=== PATIENT | female | born 1960 | race Caucasian/White ===

== ENCOUNTER 2023-12-16 07:46 | Emergency (ER) | payer OTHER, SELFPAY ==
[2023-12-16 07:48] VITALS: BP 166/81
[2023-12-16 08:00] VITALS: BP 165/73
--- NOTE | 2023-12-16 08:36 | ED.GENMED ---
History of Present Illness
General
Chief Complaint: Musculo-Skeletal Complaint
Source: patient
Exam Limitations: none
Time Seen by Provider: 12/16/23 07:46
Nursing documentation reviewed up to this point in time: agreed with
History of Present Illness
History of Present Illness:
63-year-old female past medical history of hyperlipidemia presenting to the emergency department today with concerns of right-sided buttock discomfort with radiation down her right leg some ongoing over the past month. She has not seen any doctor
for this. She noticed spasm to her low back starting this morning difficulty ambulating thus called EMS and was brought to the ER. Denies any chest pain shortness of breath numbness weakness changes in urination or bowel movements.
Past History
Past History
ED Past Medical History: Hypercholesterolemia, Psychiatric (Anxiety) and Other (Ulcers, Migraines, Diverticulitis, Low Estrogen); Negative Asthma, HTN or NIDDM
ED Past Surgical History: Gynecological (Hysterectomy with left Oophorectomy)
Social History
Tobacco: Former smoker
Alcohol: None
Drug: None
Personal:
Living: with family
Employment: Employed
Family History
Family History: Other (nc)
Review of Systems
Review of Systems
Allergies reviewed?: Yes
All Other Systems: ROS reviewed and negative except as documented in HPI and ROS
Phy Exam
Physical Exam
Physical Exam:
GENERAL: Alert , in no apparent distress
EYE: pupils equal and reactive
NECK: Supple, no significant adenopathy.
ENT: o/p clr, mmm.
CARDIAC: Regular rate and rhythm .
LUNGS: Clear breath sounds bilaterally, no acute respiratory distress, no wheezes/rales/rhonchi
ABDOMEN: Soft, without focal tenderness, no r/g, no cvat
NEUROLOGICAL: Alert and oriented, no focal neuro deficits
SKIN: Warm and dry, skin intact.
MUSCULOSKELETAL: Increased discomfort to the low back with straight leg raise to the right leg, no edema, well perfused.
PSYCH: Normal and appropriate interaction.
Course
Orders/Labs/Results
Orders:
Orders
12/16/23 08:15
Dexamethasone [Decadron] 10 mg PO NOW STA
Diazepam [Valium] 5 mg PO NOW STA
Ketorolac [Toradol] 30 mg IM NOW STA
12/16/23 08:55
Lumbar Spine, 2 or 3 View [CR Lumbar Spine 2 Or 3 Views] Urgent
Comment:
Reason For Exam: low back pain
12/16/23 09:52
Hip, Right 2-3 Views [CR Hip - RT w/wo Pel 2-3 Vw*] Urgent
Comment:
Reason For Exam: right hip pain
Include a pelvis x-ray?: Yes
Pt Eval And Treat Urgent
Activity Level: Ambulate
12/16/23 11:40
CT Pelvis W/o Iv Contrast Urgent
Comment:
Reason For Exam: hip pain, cannot weight bear
12/16/23 11:43
Oxycodone/Acetaminophen [Percocet 5/325] 2 tablet PO NOW STA
Vital Signs
Initial and Last Documented VS:
Initial Vital Signs
Temp Pulse Resp BP Pulse Ox
98 F 83 16 166/81 100
12/16/23 07:48 12/16/23 07:48 12/16/23 07:48 12/16/23 07:48 12/16/23 07:48
Last Documented Vital Signs
Temp Pulse Resp BP Pulse Ox
98 F 83 16 126/75 97
12/16/23 07:48 12/16/23 07:48 12/16/23 07:48 12/16/23 10:45 12/16/23 08:30
MDM/Problems Addressed
MDM/Problems Addressed:
63-year-old female presenting to the emergency department today with concerns of pain from her right low back rating down her right leg over the past month worsening this morning making difficulty to ambulate. Patient denies any numbness weakness
change in bowel movements or bladder function. Patient does seem to have worsening discomfort to the low back with straight leg raise to the right side. Patient does seem to have some difficulty and discomfort when moving the low back. X-rays
without emergent findings did show arthritis and anterolisthesis patient was given multiple medications had some improvement but still unable to ambulate was seen by PT still unable to ambulate. Considering this and patient's poor memory there was
concern for potential occult fracture CT scan was performed that did not show emergent injuries but did show significant anterolisthesis L4 on L5 as well as significant disc herniation L4-L5 and severe central canal stenosis as well as right-sided
neural foraminal narrowing at L4-L5. Patient was given more pain medications seem to have more improvement of symptoms.
*Critical Care Note
Total Time (30-74mins, 75-104mins- exclusive of procedures): Not Applicable
ED Attending Note
-
Portions of this chart may have been created with voice recognition software.� Occasional wrong word or��sound alike� substitutions may have occurred due to the inherent limitations of voice recognition software.
Discharge Plan
Departure
Patient Disposition: Home (Routine Discharge)
Date of Disposition: 12/16/23
Time of Disposition: 15:09
Patient with high blood pressure during this ER visit?: No
Condition: Good
Covid-19: Not Applicable
Discharge Problem:
Low back pain, Lumbar radiculopathy, Anterolisthesis
Instructions: Low Back Pain ED
Prescriptions:
New
prednisone 50 mg tablet
50 mg PO DAILY 4 Days Qty: 4 0RF
cyclobenzaprine 10 mg tablet
10 mg PO HS PRN (Reason: muscle spasm) Qty: 7 0RF
meloxicam 15 mg tablet
15 mg PO DAILY 14 Days Qty: 14 0RF
No Action
sertraline 50 MG tablet
100 mg PO DAILY
valacyclovir [Valtrex] 1 gram Tablet
1,000 mg PO DAILY
levofloxacin 500 mg tablet
500 mg PO DAILY 10 Days Qty: 10 0RF
metronidazole 250 mg tablet
250 mg PO TID Qty: 14 0RF
oxycodone-acetaminophen [Percocet] 5-325 mg tablet
1 tab PO Q6HPRN PRN (Reason: pain) Qty: 10 0RF
polyethylene glycol 3350 [Miralax] 17 gram powder in packet
17 g PO DAILY PRN (Reason: Constipation) Qty: 14 0RF
Referrals:
Abi Monge MD [Family Provider] -
Tanvir Rivera MD [Active] - Follow up in 5-7 days
Arvin Choi DO [Active] - Follow up in 10 days
Activity Restrictions/Additional Instructions:
You came to the emergency department today with concerns of low back discomfort of the right side. You had a CT scan that confirmed herniated disks and chronic back issues. You will need to follow-up closely with the back doctor. Return to the
emergency department for any worsening, new or concerning symptoms.
Interventions
Interventions:
*Risk Screen - Suicide Last Done: 12/16/23 07:48
*General Assessment Last Done: 12/16/23 07:48
*Neglect/Abuse Screening Last Done: 12/16/23 10:19
*ED COVID-19 Vaccine History Last Done: 12/16/23 10:18
ED-Musculoskeletal Assessment Last Done: 12/16/23 10:18
Discharge Date and Time
Print Language: YORUBA
[2023-12-16] MEDS: DECADRON 10 MG PO (08:37)
[2023-12-16] MEDS: TORADOL 30 MG IM (08:37)
[2023-12-16] MEDS: VALIUM 5 MG PO (08:38)
[2023-12-16 10:45] VITALS: BP 126/75
[2023-12-16 11:54] VITALS: BP 157/65; PULSE 80; O2SAT 99
[2023-12-16] MEDS: PERCOCET 5/325 2 TABLET PO (12:11)
[2023-12-16 15:25] VITALS: BP 120/70
== END 2023-12-16 15:29 | disposition home or self-care (01) ==
LOC: EMR 07:46
PROVIDERS: EMERGENCY PHYSICIAN Emergency Medicine; FAMILY PHYSICIAN Family Medicine
DX: M43.16 Spondylolisthesis, lumbar region (principal); M54.16 Radiculopathy, lumbar region; E78.00 Pure hypercholesterolemia, unspecified; Z87.891 Personal history of nicotine dependence; Z90.710 Acquired absence of both cervix and uterus; Z90.721 Acquired absence of ovaries, unilateral
CPT/HCPCS: 96372; 99284; 72100; 72192; 73502

== ENCOUNTER 2024-01-09 03:48 | Emergency (ER) | payer OTHER, SELFPAY ==
[2024-01-09 03:49] VITALS: BMI 23.3
[2024-01-09 03:55] VITALS: BP 185/92
[2024-01-09 04:00] VITALS: BP 190/99
--- NOTE | 2024-01-09 04:56 | ED.GENMED ---
History of Present Illness
General
Chief Complaint: Back Pain
Source: patient, spouse, ambulance crew and previous radiology exam (Previous lumbar spine x-ray, hip x-ray, CT pelvis December 16, 2023 showing significant anterolisthesis L4 on L5 as well as significant disc herniation L4-L5 and severe central
canal stenosis and right sided foraminal narrowing L4-L5)
Exam Limitations: none
Time Seen by Provider: 01/09/24 04:38
Nursing documentation reviewed up to this point in time: agreed with
History of Present Illness
History of Present Illness:
This is a 63-year-old woman who presents to the ED via EMS with complaints of low back pain radiating down her right posterior lateral leg that has been ongoing over the past 2 months.
Evaluated in this ED a little over 3 weeks ago with similar complaints and underwent multiple imaging showing significant L4-L5 disc disease with severe central canal stenosis and right-sided foraminal narrowing at L4-L5.
After several medications including oxycodone, evaluated by physical therapy, able to ambulate and was discharged to home with a 2-week course of meloxicam, short course of prednisone as well as a few Flexeril.
She has since followed up with her primary care physician and was prescribed Vicodin January 03 and she has an initial appointment with pain management scheduled today at 2 PM.
She presents to the ED tonight via EMS with complaints of ongoing pain with intermittent shooting pain right lateral thigh.
She has not had a fever nor chills, no fall. She has been moving her bowels normally. No difficulty urinating but does admit to increased pain, difficulty with ambulation but again has had no falls.
Although prescribed Vicodin this has not been helpful for pain.
She does have history of dementia, poor short-term memory, her is at bedside and provides much of her history.
Past History
Past History
ED Past Medical History: Hypercholesterolemia, Psychiatric (Anxiety) and Other (Ulcers, Migraines, Diverticulitis, Low Estrogen; lumbar disc disease with right-sided sciatica); Negative Asthma, HTN or NIDDM
ED Past Surgical History: Gynecological (Hysterectomy with left Oophorectomy)
Social History
Tobacco: Former smoker
Alcohol: None
Drug: None
Personal:
Living: with family
Employment: Retired
Family History
Family History: Other (nc)
Phy Exam
Physical Exam
Physical Exam:
GENERAL: 63-year-old woman, thin build, appears her stated age, sitting upright on stretcher, awake and alert, mildly anxious otherwise appears in no acute distress. is accompanying.
EYE: anicteric
NECK: Supple, nontender, no meningismus, no significant adenopathy.
ENT: oral mucosa is moist. No rhinorrhea
CARDIAC: Regular rate and rhythm. no murmur.
LUNGS: Clear breath sounds bilaterally, no acute respiratory distress, no wheezes/rales/rhonchi
ABDOMEN: Soft, nondistended, without focal tenderness, no r/g, no cvat. normoactive BS.
BACK: No midline bony tenderness. No palpable bony pelvic tenderness. Straight leg raising is positive on the right.
NEUROLOGICAL: Alert and oriented x3, no focal neuro deficits. Motor strength is 5/5 bilaterally. Gross sensation is intact.
SKIN: Warm and dry, normal color, skin intact. No rash.
MUSCULOSKELETAL: No C/C/E. peripheral pulses are full and equal b/l. No palpable tenderness.
PSYCH: Mildly anxious. Cooperative.
Course
Orders/Labs/Results
Orders:
Orders
01/09/24 04:55
Ketorolac [Toradol] 60 mg IM NOW STA
Prednisone [Deltasone] 50 mg PO NOW STA
Vital Signs
Initial and Last Documented VS:
Initial Vital Signs
Temp
98.2 F
01/09/24 03:53
Last Documented Vital Signs
Temp BP Pulse Ox
98.2 F 194/89 97
01/09/24 03:53 01/09/24 06:00 01/09/24 06:00
MDM/Problems Addressed
Differential Diagnosis Includes:
Patient presents with ongoing low back pain radiating to right posterior lateral leg with known lumbar DJD, right sided sciatica.
She has had ongoing pain over the past 2 months but has had no falls, no fever.
No red flags in history nor exam, no saddle anesthesia, no difficulty moving her bowels or bladder.
She has an initial appointment with pain management scheduled for today at 2 PM.
At this point no indication for further imaging.
Will attempt pain control with plan for discharge to home to follow-up with pain management this afternoon as already scheduled.
As patient has history of dementia, ambulation is already compromised due to back pain will attempt to avoid narcotics if at all possible.
Chronic conditions affecting care: Psychiatric illness (Dementia, anxiety) and Other (Known lumbar disc disease with right-sided sciatica)
*Pulse Oximetry
Patient hypoxic: no
*Critical Care Note
Total Time (30-74mins, 75-104mins- exclusive of procedures): Not Applicable
Update Note
Update Note:
Patient feeling improved, resting comfortably. Eager to be discharged to home.
Recommend follow-up with pain management for which she has an appointment scheduled at 2 PM today.
ED Attending Note
-
Portions of this chart may have been created with voice recognition software.� Occasional wrong word or��sound alike� substitutions may have occurred due to the inherent limitations of voice recognition software.
Discharge Plan
Departure
Patient Disposition: Home (Routine Discharge)
Date of Disposition: 01/09/24
Time of Disposition: 06:19
Patient with high blood pressure during this ER visit?: No
Condition: Good
Discharge Problem:
Low back pain with right-sided sciatica
Instructions: Sciatica (DC)
Prescriptions:
No Action
sertraline 50 MG tablet
100 mg PO DAILY
valacyclovir [Valtrex] 1 gram Tablet
1,000 mg PO DAILY
levofloxacin 500 mg tablet
500 mg PO DAILY 10 Days Qty: 10 0RF
metronidazole 250 mg tablet
250 mg PO TID Qty: 14 0RF
oxycodone-acetaminophen [Percocet] 5-325 mg tablet
1 tab PO Q6HPRN PRN (Reason: pain) Qty: 10 0RF
polyethylene glycol 3350 [Miralax] 17 gram powder in packet
17 g PO DAILY PRN (Reason: Constipation) Qty: 14 0RF
prednisone 50 mg tablet
50 mg PO DAILY 4 Days Qty: 4 0RF
cyclobenzaprine 10 mg tablet
10 mg PO HS PRN (Reason: muscle spasm) Qty: 7 0RF
meloxicam 15 mg tablet
15 mg PO DAILY 14 Days Qty: 14 0RF
Referrals:
Abi Monge MD [Family Provider] -
Activity Restrictions/Additional Instructions:
Follow-up with your pain management appointment today at 2 PM
Interventions
Interventions:
*Risk Screen - Suicide Last Done: 01/09/24 03:53
*General Assessment Last Done: 01/09/24 03:53
*Neglect/Abuse Screening Last Done: 01/09/24 03:53
*ED COVID-19 Vaccine History Last Done: 01/09/24 03:53
ED-Musculoskeletal Assessment Last Done: 01/09/24 03:53
Discharge Date and Time
Print Language: AZERBAIJANI
[2024-01-09] MEDS: DELTASONE 50 MG PO (04:59)
[2024-01-09] MEDS: TORADOL 60 MG IM (04:59)
[2024-01-09 05:00] VITALS: BP 175/90
[2024-01-09 06:00] VITALS: BP 194/89
== END 2024-01-09 06:34 | disposition home or self-care (01) ==
LOC: EMR 03:48
PROVIDERS: EMERGENCY PHYSICIAN Emergency Medicine; FAMILY PHYSICIAN Family Medicine
DX: M54.41 Lumbago with sciatica, right side (principal); E78.00 Pure hypercholesterolemia, unspecified; F03.94 Unspecified dementia, unspecified severity, with anxiety; Z87.891 Personal history of nicotine dependence; Z90.710 Acquired absence of both cervix and uterus; Z90.721 Acquired absence of ovaries, unilateral
CPT/HCPCS: 96372; 99284

== ENCOUNTER 2024-04-07 18:44 | Inpatient (IN) | payer MEDICARE, OTHER, SELFPAY ==
[2024-04-07] VITALS (16 sets, daily range): BP systolic 85–143; BP diastolic 59–113; BMI 17.4; BMI 16.8
[2024-04-07 16:29] LABS: % Basophils 0.2 % (0-2); % Eosinophils 0.3 % (0-6); % Immature Granulocytes 0.4 % (0-0.5); % Lymphocytes 19.7 % (20.5-51.1); % Monocytes 6.2 % (1.7-9.3); % Neutrophils 73.2 % (42.2-75.2); Absolute Immature Granulocytes 0.1 10^3/uL (0-0.05); Absolute Lymphocytes 2.5 10^3/uL (1.2-3.4); Absolute Monocytes 0.8 10^3/uL (0.1-0.6); Absolute Neutrophils 9.3 10^3/uL (1.4-6.5); Hematocrit 26.4 % (37.0-47.0); Hemoglobin 8.9 g/dL (12.0-16.0); Mean Corp Hgb Conc. 33.7 g/dL (33.0-37.0); Mean Corpuscular Hgb 33.5 pg (27.0-31.0); Mean Corpuscular Volume 99.2 fL (81.0-99.0); Nucleated Red Blood Cells % 0 %; Platelet Count 286 10^3/uL (130-400); Red Blood Cell Count 2.66 10^6/uL (4.20-5.40); Red Cell Dist. Width 13.4 % (11.5-14.5); White Blood Cell Count 12.7 10^3/uL (4.8-10.8)
[2024-04-07 16:47] LABS: ALT (SGPT) 16 U/L (0-35); AST (SGOT) 22 U/L (14-36); Albumin 3.4 g/dl (3.5-5.0); Alkaline Phosphatase 65 U/L (38-126); Blood Urea Nitrogen 58 mg/dl (7-17); Calcium 9.4 mg/dl (8.4-10.2); Carbon Dioxide 24 mmol/L (22-30); Chloride 104 mmol/L (98-107); Estimated Creatinine Clearance 72 ml/min; Glucose 100 mg/dl (70-99); Potassium 4.3 mmol/L (3.5-5.1); Sodium 137 mmol/L (135-145); Total Bilirubin 0.7 mg/dl (0.2-1.3); Total Protein 5.2 g/dl (6.3-8.2); eGFR > 60.00
--- NOTE | 2024-04-07 17:09 | ED.GENMED ---
History of Present Illness
General
Chief Complaint: Rectal Bleeding
Source: patient
Exam Limitations: none
Time Seen by Provider: 04/07/24 16:47
Nursing documentation reviewed up to this point in time: agreed with
History of Present Illness
History of Present Illness:
Patient with history of recent back surgery and who has been taking combination of pain medication, i.e. meloxicam and prednisone, presents to ED secondary to 'black stool' along with multiple episodes of dark vomit over the past 2 days. Patient
also reports feeling lightheaded. Denies chest pain or shortness of breath. Denies trauma. Patient does have history of gastric ulcer.
Past History
Past History
ED Past Medical History: Hypercholesterolemia, Psychiatric (Anxiety) and Other (Ulcers, Migraines, Diverticulitis, Low Estrogen; lumbar disc disease with right-sided sciatica); Negative Asthma, HTN or NIDDM
ED Past Surgical History: Gynecological (Hysterectomy with left Oophorectomy)
Social History
Tobacco: Former smoker
Alcohol: None
Drug: None
Personal:
Living: with family
Employment: Retired
Family History
Family History: Other (nc)
Review of Systems
Review of Systems
Allergies reviewed?: Yes
All Other Systems: ROS reviewed and negative except as documented in HPI and ROS
Constitutional: Reports no symptoms
EENT: Reports no symptoms
Respiratory: Reports no symptoms
Cardiac: Reports no symptoms
ABD/GI: Reports black stools
Musculoskeletal: Reports no symptoms
Skin: Reports no symptoms
Neurological: Reports no symptoms
Phy Exam
Physical Exam
Physical Exam:
Physical Exam
General: mild distress, not acutely ill. afebrile
Head: nc/at. eomi
Neck: supple. no meningeal signs.
Heart: s1/s2 regular rate and rhythm, no murmur. equal radial pulses.
Lungs: no acute respiratory distress. clear bilaterally
Abdomen: normal bowel sounds. not tender. rectal exam (SULMA Fuentes, at bedside): melena, grossly heme positive.
Neuro: alert and oriented. no focal neurological deficits
Skin: no rash
Psychiatric: well kept. interactive and cooperative
Extremities: no edema. no calf tenderness.
Course
Orders/Labs/Results
Orders:
Orders
04/07/24 Dinner
Clear Liquid
At Your Request: Full Participation
Comment: Clear liquid for dinner. Then NPO after MN
04/07/24 16:20
Type+Screen Urgent
Complete Blood Count/With Diff Urgent
Comprehensive Metabolic Panel Urgent
Ferritin Urgent
Comment: ADD ON
Iron Urgent
Comment: ADD ON
Total Iron Binding Urgent
Comment: ADD ON
04/07/24 17:03
0.9% Sodium Chloride 500 ml [Nss] 500 ml IV BOLUS
04/07/24 17:04
Add On- LAB Urgent
Tests Added?: iron, ferritin, tibc
04/07/24 17:06
Pantoprazole [Protonix IV] 80 mg IV NOW STA
04/07/24 17:15
Pantoprazole 80 mg/100 ml Nss [Protonix] 80 mg in 100 ml IV Q10H
04/07/24 18:22
Code Status As Directed
Resuscitation Status: Full Code
Activity As Directed
Activity Level: With Assistance
INT (Intravenous Needle Therapy) As Directed
Comment: Place 2 IV catheters of the largest bore possible until stable
Orthostatic Vital Signs As Directed
Orthostatic VS Frequency: Now
Comment: then every four hours for twenty-four hours
Vital Signs As Directed
Frequency: Per unit guidelines
04/07/24 18:23
Admit/Transfer Patient As Directed
Co-Sign Provider:
Level of Care: Inpatient admission
Assign to:: Telemetry
Physician / Group: [email or web address]
Diagnosis: acute UGIB, ACBL anemia
Reason for Telemetry: Other
Other Reason for Telemetry: acute UGIB, ACBL anemia
Date to Stop Telemetry: 04/09/24
Time to Stop Telemetry: 11:00
Reason for Hospitalization: acute UGIB, ACBL anemia
Expected length of stay greater than two midnights?: Yes
ELOS- Estimated Length of Stay in days: 3
I certify the patient meets the requirements for IP care: Yes
04/07/24 19:43
GASTROINTESTINAL CONSULT Routine
Consulting Provider: Domenico Crandall
Was physician already notified: Yes
Reason for consult: acute UGIB, ACBL anemia
Activity As Directed
Activity Level: With Assistance
Compression Sleeves [Pneumatic Compression Sleeves] As Directed
Type: Knee high
INT (Intravenous Needle Therapy) As Directed
Comment: Place 2 IV catheters of the largest bore possible until stable
Orthostatic Vital Signs As Directed
Orthostatic VS Frequency: Now
Comment: then every four hours for twenty-four hours
Vital Signs As Directed
Frequency: Per unit guidelines
DX Deep Vein Thrombosis Video Routine
04/07/24 20:00
0.9% Sodium Chloride 1000 ml [Nss] 1,000 ml IV 80 mls/hr
04/07/24 20:10
H&H Q6H
04/08/24 Breakfast
NPO
Allow oral meds: Yes
Allow clear liquids: No
NPO with Ice Chips: Yes
Basic Metabolic Panel IN AM
04/09/24 11:00
DC Protocol for Telemetry ONCE
Abnormal Lab Results
04/07/24
16:20
WBC 12.7 H 10^3/uL
(4.8-10.8)
RBC 2.66 L 10^6/uL
(4.20-5.40)
Hgb 8.9 L g/dL
(12.0-16.0)
Hct 26.4 L %
(37.0-47.0)
MCV 99.2 H fL
(81.0-99.0)
MCH 33.5 H pg
(27.0-31.0)
Abs Immat Gran (auto) 0.1 H 10^3/uL
(0-0.05)
Absolute Neuts (auto) 9.3 H 10^3/uL
(1.4-6.5)
Absolute Monos (auto) 0.8 H 10^3/uL
(0.1-0.6)
Lymphocytes % 19.7 L %
(20.5-51.1)
BUN 58 H mg/dl
(7-17)
Creatinine 0.5 L mg/dL
(0.6-1.0)
Glucose 100 H mg/dl
(70-99)
Iron 174 H ug/dl
(37-170)
TIBC 190 L ug/dl
(265-497)
% Saturation 91 H %
(20-50)
Total Protein 5.2 L g/dl
(6.3-8.2)
Albumin 3.4 L g/dl
(3.5-5.0)
Crossmatch IS Only See Detail
04/07/24 16:20
04/07/24 16:20
Vital Signs
Initial and Last Documented VS:
Initial Vital Signs
Temp Pulse Resp BP Pulse Ox
99 F 112 16 132/105 99
04/07/24 16:09 04/07/24 16:09 04/07/24 16:09 04/07/24 16:09 04/07/24 16:09
Last Documented Vital Signs
Temp Pulse Resp BP Pulse Ox
98.0 F 109 18 122/67 100
04/07/24 23:46 04/07/24 23:46 04/07/24 23:46 04/07/24 23:46 04/07/24 19:45
MDM/Problems Addressed
MDM/Problems Addressed:
Blood work reviewed, including H/H and Bun/Cr. Pt remains tachycardic. Will provide ivf and start protonix gtt. Pt remains normotensive.
Melena likely due to recent prednisone and meloxicam use, secondary to pain from back surgery.
(GI) notified via [facility]
*Critical Care Note
Total Time (30-74mins, 75-104mins- exclusive of procedures): Not Applicable
ED Attending Note
-
Portions of this chart may have been created with voice recognition software.� Occasional wrong word or��sound alike� substitutions may have occurred due to the inherent limitations of voice recognition software.
Discharge Plan
Departure
Patient Disposition: Admit
Date of Disposition: 04/07/24
Time of Disposition: 17:16
Admit to: Telemetry
Presentation/result/management discussed w/ accepting MD/DO: Hospitalist
Discharge Problem:
Melena
Interventions
Interventions:
*Risk Screen - Suicide Last Done: 04/07/24 16:09
*General Assessment Last Done: 04/07/24 16:09
*Neglect/Abuse Screening Last Done: 04/07/24 16:17
*ED COVID-19 Vaccine History Last Done: 04/07/24 20:21
*Nursing Disposition Last Done: 04/07/24 19:50
JY-Tqupnt-Ymsflvixze Assessment Last Done: 04/07/24 16:17
ED- Cardiac Assessment Last Done: 04/07/24 16:17
ED- Pulmonary Assessment Last Done: 04/07/24 16:17
Discharge Date and Time
Discharge Date/Time: 04/07/24 19:50
[2024-04-07] MEDS: NSS 500 IV (17:27)
[2024-04-07] MEDS: PROTONIX IV 80 MG IV (17:28)
[2024-04-07] MEDS: PROTONIX 100 IV (17:28)
--- NOTE | 2024-04-07 18:17 | HPS.HSE ---
Family Physician
-
Family Physician:
Chief Complaint
-
black stool passage
History of Present Illness
HPI
64F HX GIB, Gastric ulcer in 2020, HX recent back surgery and who has been taking combination of pain medication, i.e. meloxicam and prednisone, presents to ED:
- evaluation due to black stool along with multiple episodes of dark vomit over the past 2 days.
- reports feeling lightheaded.
ROS
Denies chest pain or shortness of breath.
Denies trauma.
Medical History
Past Medical History
Past Medical History: Reports HTN, Hypercholesterolemia and Psychiatric (anxiety )
Additional Past Medical History:
Migraines, Diverticulitis, Low Estrogen; lumbar disc disease with right-sided sciatica
Past Surgical History: Reports Gynocological (Hysterectomy with left Oophorectomy) and Orthopedic (recent Lx spine surgery )
Social History
Tobacco: Former Smoker
Alcohol: None
Personal:
Living: With Family
Family History
Family History: Not pertinent
Allergies / Home Medications
Allergies reflects when Allergies were last updated in [facility].
Home Medications with original date entered in [facility]
Allergy/Medication List:
Allergies
Allergy/AdvReac Type Severity Reaction Status Date / Time
Sulfa (Sulfonamide Allergy Hives Verified 01/09/24 03:52
Antibiotics)
Home Medications
acetaminophen 500 mg tablet (Tylenol Extra Strength) 1,000 mg PO Q6HPRN PRN mild pain 04/07/24
cholecalciferol (vitamin D3) 50 mcg (2,000 unit) tablet (Vitamin D3) 50 mcg PO DAILY 04/07/24
donepezil 5 mg tablet 5 mg PO HS 04/07/24
lidocaine 5 % topical patch 1 patch topical DAILYPRN PRN mild pain 04/07/24
meloxicam 15 mg tablet 15 mg PO HS 04/07/24
omega-3 fatty acids-fish oil 684 mg-1,200 mg capsule,delayed release 1 cap PO DAILY 04/07/24
polyethylene glycol 3350 17 gram oral powder packet (Miralax) 4.25 g PO DAILY Constipation 04/07/24
sertraline 100 mg tablet 100 mg PO DAILY 04/07/24
tizanidine 4 mg tablet 4 mg PO HS 04/07/24
valacyclovir 500 mg tablet 500 mg PO DAILY 04/07/24
Review of Systems
-
Constitutional: Reports No Symptoms
EENT: Reports No Symptoms
Respiratory: Reports No Symptoms
Cardiac: Reports No Symptoms
Abdomen/GI: Reports See HPI, Abdominal Pain and Black Stools
: Reports No Symptoms
Musculoskeletal: Reports No Symptoms
Skin: Reports No Symptoms
Neurological: Reports No Symptoms
Endocrine: Reports No Symptoms
Hematologic/Lymphatic: Reports No Symptoms
Psych: Reports No Symptoms
Physical Exam
Vital Signs
Vital Signs
Temp Pulse Resp BP Pulse Ox
99 F 110 18 143/72 100
04/07/24 16:09 04/07/24 17:45 04/07/24 17:45 04/07/24 17:45 04/07/24 17:45
Physical Exam
General: No Apparent Distress
HEENT: NormoCephalic and Anicteric
Respiratory: Clear; No Wheezes, Rales or Rhonchi
Cardiac: S1/S2, Regular Rhythm and Tachycardia; No Murmur
Breast: Deferred by me
GI: Soft, Non Tender and Non Distended
Rectal: Black (per ER attd ) and Hem Positive
Musculoskeletal: No Edema
Skin: Warm
Neuro: AO x 3
Psych: Calm
Laboratory Results
-
04/07/24 16:20
04/07/24 16:20
Laboratory Results
Total Bilirubin 0.7 mg/dl (0.2-1.3) 02/15/25 16:20
AST 22 U/L (14-36) 04/07/24 16:20
ALT 16 U/L (0-35) 04/07/24 16:20
Alkaline Phosphatase 65 U/L (38-126) 04/07/24 16:20
Data Reviewed
-
Lab Data: Labs Reviewed by me
Old Records: Reviewed
Impression/Plan
-
Laboratory Tests
09/18/22 04/07/24
21:54 16:20
WBC 9.4 12.7 H
Hgb 12.7 8.9 L
EGD on February 02, 2020 showing gastric ulcers with a clean ulcer base.
Last hospitalist admission:
DATE OF ADMISSION: 02/01/2020
DATE OF DISCHARGE: 02/06/2020
PRIMARY DIAGNOSES:
Acute blood loss anemia due to upper and lower gastrointestinal bleeding due to angiectasias, diverticulosis, and
gastric ulcers. The gastric ulcers were likely due to Excedrin and stress.
ASSESSMENT & PLAN
Acute grossly HoB POS melena stool GIB with associated ACBLA ( Hgb 12s --> 8s)
Diff origin; suspect UGI origin, likjely NSAID associated gastritis,
Tachycardia . Normotensive
- DC' d Meloxicam . Avoid NSAIDS
- Blood consent
- T & S
- clear for now then NPO after MN
- PPI gtt
- IVF
- Trend H & H
- GI consult
Recent L4/5 laminectomy and fusion at [facility] December 2023 for Lumbar disc disease with right-sided sciatica
S/p PO Prednisone taper
- DC Meloxicam
Known HX
Hypercholesterolemia
Anxiety
Migraines
Diverticulitis
Low Estrogen
DVT Px: SCD
Full code
IP TLM
[2024-04-07 18:39] LABS: Iron 174 ug/dl (37-170)
[2024-04-07 18:48] LABS: Percent Saturation 91 % (20-50); Total Iron Binding Capacity 190 ug/dl (265-497)
[2024-04-07 19:16] LABS: Ferritin 41.5 ng/ml (11.1-264.0)
[2024-04-07] MEDS: NSS 1000 IV (20:05)
[2024-04-07 20:17] LABS: Hematocrit 21.7 % (37.0-47.0); Hemoglobin 7.4 g/dL (12.0-16.0)
--- NOTE | 2024-04-07 20:51 | VATNOTE ---
Rec'd. order for 2 large bore IV catheters, pt. has an 18g, RAC placed by ambulance and pt. chooses not to have a restart, staff writer aware.
[2024-04-07] MEDS: NSS 250 IV (21:04)
--- NOTE | 2024-04-07 21:12 | W.PN.UPDATE ---
Update Note
Progress Note Update
Approximately 20:30, Patient seen at request of nursing for hypotension (BP 85/59), tachycardia (HR 120's) moderate amount of black liquid stool and pallor. Repeat Hgb 7.4 at 20:10.
Ordered 1 unit PRBC's and NSS 500 L bolus. BP 120/90 and HR 100, improved w/bolus.
Around 1:30 am, Patient w/continued liquid brown bowel movements t/o the night. Patient also vomited large blood clot and continued to spit up blood. Vital signs: BP 122/73, HR 113, pulsox 98 on room air, temp 99.2. At 2 am, Repeat CBC, showed Hgb
6.8/Hct 19.3 after 1 unit PRBC's transfused. Second unit of PRBC's ordered. Serial H&H's Q6H ordered. Patient upgraded to IMU level of care. Nursing brineyard supervisor aware, bed available. Attempted to call to update on patient status, did not
answer, left message to return call.
[2024-04-07] MEDS: MELATONIN 3 MG PO (22:35)
[2024-04-08] VITALS (36 sets, daily range): BP systolic 48–153; BP diastolic 27–85
--- NOTE | 2024-04-08 00:17 | PTCARENOTE ---
Pt arrived to unit from ED via stretcher to room 339-1 on . Patient pulled over from stretcher to bed. Patient AAOx3, forgetful, very anxious. Patient reports 'cognitive decline.' Bed alarm placed. Tele placed per orders. Patient had large,
soft black BM. After BM, patient's BP 85/59 and HR 123 Pox . Patient c/o feeling dizzy. Hgb now 7.4. SERGIO Busch notified. New orders rec'd for bolus, 1 unit PRBC. After bolus, BP 119/63 HR 105. 1 u PRBC transfused without issue. BP 122/67
after transfusion. Patient with c/o 'dust mites' bothering her and requesting something to help her sleep. SERGIO Busch notified. New order rec'd for melatonin. Oriented to unit. Call flor within reach. Plan of care ongoing.
[2024-04-08] MEDS: OFIRMEV 100 IV (00:50)
[2024-04-08] MEDS: BENADRYL 12.5 MG IV (02:04)
[2024-04-08 02:28] LABS: Hematocrit 19.3 % (37.0-47.0); Hemoglobin 6.8 g/dL (12.0-16.0)
--- NOTE | 2024-04-08 02:42 | PTCARENOTE ---
Patient vomited large blood clot. BP 153/81 HR 112 99.3 100% RA. H&H drawn. SERGIO Busch notified and came to floor to see patient. Patient c/o nausea. New order rec'd for benadryl. See MAR for administration details. Patient had another large
black BM. Hgb resulted at 6.8 Hct 19.3. SERGIO Busch aware. Plan of care ongoing.
--- NOTE | 2024-04-08 03:48 | PTCARENOTE ---
Patient transferred to IMU. Report given to RN. All belongings taken with patient.
[2024-04-08] MEDS: PROTONIX 100 IV ×2 (04:07→14:11)
--- NOTE | 2024-04-08 04:20 | PTCARENOTE ---
Received pt from [facility]. Pulled pt over into IMU bed. IVF and protonix gtt running on arrival. 1 unit PRBCs currently infusing with no issues. ST on monitor and BP 110/53 with MAP 70. Pt very anxious and having confused conversation. Has a bag
that she keeps around her neck with all her 'important' information, i.e. her ID, medications etc. She does not want that removed unless absolutely necessary. 1 liquid melena stool on bed rudd. Small amount of bloody emesis. Call flor in reach,
pt resting in bed.
[2024-04-08 08:06] LABS: Hematocrit 20.8 % (37.0-47.0); Hemoglobin 7.2 g/dL (12.0-16.0)
--- NOTE | 2024-04-08 08:43 | W.PN.HOSP.TC ---
Today's Communication/Plan
-
Trend H&H
IV fluid
PPI drip
EGD today
Assessment / Plan
Assessment / Plan
Upper GI bleeding likely secondary to esophagus versus gastric ulcer versus AVMs versus and NSAIDs associated gastritis
Acute blood loss anemia
- DC' d Meloxicam . Avoid NSAIDS
- Blood consent
- T & S
- Status post 2 units of PRBC. Repeat hemoglobin 7.2. Additional 1 unit of PRBC added
- PPI gtt
- IVF
- Trend H & H
- Plan for EGD later today.
- Gi following
Recent L4/5 laminectomy and fusion at [facility] December 2023 for Lumbar disc disease with right-sided sciatica
S/p PO Prednisone taper
- DC Meloxicam
Dementia early onset
-Monitor for behavioral disturbances
-Ativan for severe anxiety
Known HX
Hypercholesterolemia
Anxiety
Migraines
Diverticulitis
Low Estrogen
DVT Px: SCD
Full code
Discussed with gastroenterology. Patient with acute illness of Gastrointestinal upper GI life-threatening bleeding and volume loss. Patient would need emergent procedure for medical stabilization and risk outweighs benefits with plan to proceed
towards endoscopy. Was able to get in touch with patient spouse Kulwinder who also agreed for procedure. Explained to check patient hospitalization so far.
Anticipated Discharge: > 48 hours
Subjective/Interval History
-
Date of Service: April 08, 2024
States she has recent back surgery.
States she was started meloxicam for back pain
States of vomiting blood with blood clots
States of severe anxiety
Tremors noted
Objective Data
-
Labs:
Laboratory Results
04/08/24 04/08/24 04/08/24
01:51 07:45 14:00
Hgb 6.8 L* 7.2 L Pending
Hct 19.3 L* 20.8 L* Pending
Sodium Pending
Potassium Pending
Chloride Pending
Carbon Dioxide Pending
BUN Pending
Creatinine Pending
Glucose Pending
Calcium Pending
04/08/24
20:00
Hgb Pending
Hct Pending
Sodium
Potassium
Chloride
Carbon Dioxide
BUN
Creatinine
Glucose
Calcium
Vital Signs:
Vital Signs
Temp Pulse Resp BP Pulse Ox
99.2 F 120 26 133/60 100
04/08/24 07:33 04/08/24 08:30 04/08/24 08:30 04/08/24 08:00 04/08/24 08:30
I&O
04/07/24 04/08/24 04/09/24
06:59 06:59 06:59
Intake Total 750 / 750
Balance 750 / 750
Physical Exam
-
General: Well Developed and No Apparent Distress
HEENT: Normocephalic, Atraumatic and Moist Mucous Membranes
Respiratory: Clear to Auscultation
Cardiac: Regular Rhythm and S1/S2; Negative Murmur, Rub or Gallop
GI: Soft, Nontender, Nondistended and Normal Bowel Sounds; Negative Organomegaly
Rectal: Deferred by Provider
Musculoskeletal: No Clubbing, No Cyanosis and No Edema
Skin: Negative Rash
Neuro: Awake, No Motor Deficits and Nonfocal/Grossly Intact
Psych: Anxious and Apparent Dementia
Data Reviewed
-
Total Time Spent with Patient (in minutes): 58
[2024-04-08 08:50] LABS: Blood Urea Nitrogen 61 mg/dl (7-17); Calcium 7.6 mg/dl (8.4-10.2); Carbon Dioxide 20 mmol/L (22-30); Chloride 116 mmol/L (98-107); Estimated Creatinine Clearance 70 ml/min; Glucose 101 mg/dl (70-99); Potassium 3.9 mmol/L (3.5-5.1); Sodium 139 mmol/L (135-145); eGFR > 60.00
[2024-04-08] MEDS: ATIVAN 0.25 MG IV ×2 (09:10→19:52)
[2024-04-08] MEDS: ZOFRAN 4 MG IV (09:10)
[2024-04-08] MEDS: NSS (PRESERVATIVE FREE) 0.125 ML IV ×2 (09:11→19:53)
--- NOTE | 2024-04-08 09:21 | PTCARENOTE ---
Assumed care of patient this AM. Patient extremely anxious. Having multiple INC episodes of dark stools. Hgb this morning 7.2 after receiving 2 units PRBC's. Order received from Dr. Lee to transfuse another unit of blood. New order for
zofran and ativan. ST on monitor HR 90's-low 100's. VS stable,afebrile. IV fluids and protonix drip infusing as ordered.
--- NOTE | 2024-04-08 10:58 | CON.GI ---
Addendum entered and electronically signed by Domenico Crandall MD 04/08/24 12:34:
error consult done 11:30am
Addendum entered and electronically signed by Domenico Crandall MD 04/08/24 12:21:
Clarification - this is her baseline mental status she has dementia for 3 years which has been progressing.
Addendum entered and electronically signed by Domenico Crandall MD 04/08/24 12:18:
I was able to reach Kulwinder Dorado. Patient has dementia. This is her baseline. Melena started yesterday. She reported coffee-ground emesis to him although he did not see it. I discussed with him upper endoscopy and he is agreeable. We
discussed the risk, benefits, and alternatives to upper endoscopy. The risks include bleeding, infection, perforation, missed lesion, and cardiopulmonary complications from anesthesia. Consent obtained at 12:15 PM
Original Note:
Consultation
-
Date/Time Consultation Requested: 04/07/2024, 7:45 pm
Date/Time Consultation Performed: 04/08/2024, 1:30pm
Requesting Provider: Dr. Butler
Performing Provider: Dr. Crandall
Reason for Consultation: melena
Medical History
Chief Complaint / HPI
Chief Complaint: melena
History of Present Illness:
64-year-old female past medical history of gastric ulcer in 2019 with recent back surgery taking meloxicam and prednisone coming in with melena, dark emesis, lightheadedness.
Unable to get much history from patient - she is hysterical. She mentions she has cognitive decline. There is report that she potentially vomited a clot of blood. I cannot get a history of when the vomiting/melena started, etc from patient. I
attempted to call her and left a voicemail.
Reviewing labs, hemoglobin 6.8 this morning requiring 2 units of blood, repeat this morning 7.2 getting 3rd unit currently. BUN elevated 61, blood pressure as low as 85/59, heart rate 100-120.
Records reviewed: upper endoscopy Dr. Rosenthal January 2020 normal esophagus, gastric ulcers with clean base, normal duodenum.
Past Medical History
Past Medical History: HTN, Hypercholesterolemia, Psychiatric (anxiety) and Other (Migraines, Diverticulitis, lumbar disc disease with right-sided sciatica)
Past Surgical History: Gynecological (Hysterectomy with left Oophorectomy) and Orthopedic (recent spine surgery)
Social History
Tobacco: Former Smoker
Alcohol: None
Family History
Family History: Unable to Obtain
Allergies / Home Medications
Allergy/AdvReac Type Severity Reaction Status Date / Time
Sulfa (Sulfonamide Allergy Hives Verified 01/09/24 03:52
Antibiotics)
�Medication �Instructions �Recorded
acetaminophen 500 mg tablet 1,000 mg PO Q6HPRN PRN mild pain 04/07/24
(Tylenol Extra Strength)
cholecalciferol (vitamin D3) 50 50 mcg PO DAILY 04/07/24
mcg (2,000 unit) tablet (Vitamin
D3)
donepezil 5 mg tablet 5 mg PO HS 04/07/24
lidocaine 5 % topical patch 1 patch topical DAILYPRN PRN mild 04/07/24
pain
meloxicam 15 mg tablet 15 mg PO HS 04/07/24
omega-3 fatty acids-fish oil 684 1 cap PO DAILY 04/07/24
mg-1,200 mg capsule,delayed release
polyethylene glycol 3350 17 gram 4.25 g PO DAILY Constipation 04/07/24
oral powder packet (Miralax)
sertraline 100 mg tablet 100 mg PO DAILY 04/07/24
tizanidine 4 mg tablet 4 mg PO HS 04/07/24
valacyclovir 500 mg tablet 500 mg PO DAILY 04/07/24
Review of Systems
-
Unable to obtain full review of systems at this time due to: Other (patient hysterical unable to comment)
Vital Signs
Temp Pulse Resp BP Pulse Ox
98.7 F 100 22 100/56 99
04/08/24 10:16 04/08/24 10:16 04/08/24 10:15 04/08/24 10:16 04/08/24 10:16
Physical Exam
Exam
General: Other (hysterical)
HEENT: Normocephalic
Respiratory: Clear
Cardiac: S1/S2
GI: Non Tender and Non Distended
Musculoskeletal: Clubbing
Skin: Warm
Neuro: AO x 3
Psych: Agitated
Results
WBC 12.7 10^3/uL (4.8-10.8) H 04/07/24 16:20
Hgb 7.2 g/dL (12.0-16.0) L 04/08/24 07:45
Hct 20.8 % (37.0-47.0) L* 04/08/24 07:45
MCV 99.2 fL (81.0-99.0) H 04/07/24 16:20
Plt Count 286 10^3/uL (130-400) 04/07/24 16:20
Absolute Neuts (auto) 9.3 10^3/uL (1.4-6.5) H 04/07/24 16:20
Sodium 139 mmol/L (135-145) 04/08/24 07:45
Potassium 3.9 mmol/L (3.5-5.1) 04/08/24 07:45
Chloride 116 mmol/L (98-107) H 04/08/24 07:45
Carbon Dioxide 20 mmol/L (22-30) L 04/08/24 07:45
BUN 61 mg/dl (7-17) H 04/08/24 07:45
Creatinine 0.5 mg/dL (0.6-1.0) L 04/08/24 07:45
Calcium 7.6 mg/dl (8.4-10.2) L D 04/08/24 07:45
Total Bilirubin 0.7 mg/dl (0.2-1.3) 04/07/24 16:20
AST 22 U/L (14-36) 04/07/24 16:20
ALT 16 U/L (0-35) 04/07/24 16:20
Alkaline Phosphatase 65 U/L (38-126) 04/07/24 16:20
Diagnostic Image Results:
Prior GI Procedures:
EGD:
Colonoscopy:
Assessment / Plan
-
64 yo F pmh here with melena and hematemesis with drop in Hb, elevated BUN all c/w UGIB suspect another ulcer in setting of meloxicam/prednisone.
I d/w Dr. Lee - unclear with pt cognitive decline if she can consent. With the report of hematemesis and blood clots in vomit, borderline BP, 3UPRBC needed plan for emergent EGD today with 2 physician consent. I did explain to pt r/a/b of
procedure risk including but not limited to bleeding, infection, perforation, anesthesia risk. I will continue to attempt to reach her .
In interim - continue NPO, PPI gtt, monitor VS/Hb, transfuse PRN, will give reglan prior to procedure.
Further recommendations pending EGD.
-
-
Thank you for consultation and allowing me to participate in the patient's care. Please call the solar fabrication technician GI physician during the after hours with any questions or concerns.
--- NOTE | 2024-04-08 11:38 | PTCARENOTE ---
Patient received a unit of PRBC's without incident. VS stable.
[2024-04-08] MEDS: NSS 1000 IV (11:41)
[2024-04-08 14:33] LABS: Hematocrit 22.4 % (37.0-47.0); Hemoglobin 7.8 g/dL (12.0-16.0)
[2024-04-08] MEDS: REGLAN 10 MG IV (14:39)
[2024-04-08] MEDS: FLUSH (NSS) 1 FLUSH IV (14:40)
--- NOTE | 2024-04-08 15:23 | PTCARENOTE ---
Patient off unit to GI lab for EGD.
--- NOTE | 2024-04-08 16:22 | PTCARENOTE ---
Patient back from GI lab. Drowsy but arousable. VS stable. IV fluids at @ 80mls/hr. Protonix drip changed to IV BID. Advanced to clear liquids.
[2024-04-08] MEDS: NSS (PRESERVATIVE FREE) 10 ML IV (19:53)
[2024-04-08] MEDS: PROTONIX IV 40 MG IV (19:53)
[2024-04-08 20:43] LABS: Hematocrit 19.8 % (37.0-47.0); Hemoglobin 6.9 g/dL (12.0-16.0)
[2024-04-09] VITALS (19 sets, daily range): BP systolic 96–150; BP diastolic 46–89; BMI 17.7
[2024-04-09] MEDS: NSS 1000 IV (01:23)
--- NOTE | 2024-04-09 01:32 | PTCARENOTE ---
Caring for pt overnight. aaox2, forgetful, pleasant. Very anxious. No changes in assessment. Is continuing to have black stools. Rechecled hgb at 1999, resulted 6.9. CELLULAR BIOLOGIST aware, 2URBC ordered. Pt asymptomatic, denies pain. NSR Remains RA. Bed alarm.
ativan given for anxiety. No other issues. Will monitor.
[2024-04-09 06:27] LABS: % Basophils 0.5 % (0-2); % Eosinophils 1.2 % (0-6); % Immature Granulocytes 0.2 % (0-0.5); % Monocytes 8.2 % (1.7-9.3); % Neutrophils 54.9 % (42.2-75.2); Absolute Eosinophils 0.1 10^3/uL (0-0.7); Absolute Lymphocytes 2.8 10^3/uL (1.2-3.4); Absolute Monocytes 0.7 10^3/uL (0.1-0.6); Absolute Neutrophils 4.4 10^3/uL (1.4-6.5); Hematocrit 28.4 % (37.0-47.0); Mean Corp Hgb Conc. 35.2 g/dL (33.0-37.0); Mean Corpuscular Hgb 31.6 pg (27.0-31.0); Mean Corpuscular Volume 89.9 fL (81.0-99.0); Mean Platelet Volume 10.1 fL (7.4-10.4); Nucleated Red Blood Cells % 0 %; Platelet Count 117 10^3/uL (130-400); Red Blood Cell Count 3.16 10^6/uL (4.20-5.40); Red Cell Dist. Width 14.1 % (11.5-14.5)
[2024-04-09 06:57] LABS: Blood Urea Nitrogen 20 mg/dl (7-17); Calcium 8.1 mg/dl (8.4-10.2); Carbon Dioxide 23 mmol/L (22-30); Chloride 112 mmol/L (98-107); Estimated Creatinine Clearance 73 ml/min; Glucose 89 mg/dl (70-99); Potassium 3.7 mmol/L (3.5-5.1); Sodium 140 mmol/L (135-145); eGFR > 60.00
--- NOTE | 2024-04-09 07:11 | W.PN.HOSP.TC ---
Today's Communication/Plan
-
Advance diet
Assessment / Plan
Assessment / Plan
Physical Exam
General: No Apparent Distress
HEENT: NormoCephalic and Anicteric
Respiratory: Clear; No Wheezes, Rales or Rhonchi
Cardiac: S1/S2, Regular Rhythm and Tachycardia; No Murmur
GI: Soft, Non Tender and Non Distended
Musculoskeletal: No Edema
Skin: Warm
Neuro: AO to self and surroundings, followed commands.
Psych: Calm
# upper GI bleeding likely secondary to suspected nonsteroidal anti-inflammatory drug induced gastric irritation.
Acute blood loss anemia
- DC' d Meloxicam . Avoid NSAIDS
- Status post 5 units of PRBC. Repeat hemoglobin 10.
- s/p PPI gtt
- s/p IVF
- Trend H & H
-EGD 04/07,Normal esophagus. Small hiatal hernia. Multiple gastric polyps.Normal stomach. Non-bleeding duodenal ulcers with a flat pigmented spot (Kaushal Class IIc).
- GI following
Recent L4/5 laminectomy and fusion at [facility] December 2023 for Lumbar disc disease with right-sided sciatica
S/p PO Prednisone taper
- DC Meloxicam
Dementia early onset
-Monitor for behavioral disturbances
-Ativan for severe anxiety
Known HX
Hypercholesterolemia
Anxiety
Migraines
Diverticulitis
Low Estrogen
Total time spent to see the patient, examine the patient, review data and lab results, discuss treatment plan with patient, nursing staff around 55 minutes
Anticipated Discharge: Within 24 hours
Subjective/Interval History
-
Date of Service: April 09, 2024
No chest pain
No sob
Objective Data
-
Labs:
Laboratory Results
04/08/24 04/09/24
20:29 06:12
WBC 8.0
Hgb 6.9 L* 10.0 L D
Hct 19.8 L* 28.4 L
Plt Count 117 L D
Sodium 140
Potassium 3.7
Chloride 112 H
Carbon Dioxide 23
BUN 20 H
Creatinine 0.5 L
Glucose 89
Calcium 8.1 L
Vital Signs:
Vital Signs
Temp Pulse Resp BP Pulse Ox
98.1 F 84 17 130/70 99
04/09/24 03:44 04/09/24 06:00 04/09/24 06:00 04/09/24 06:00 04/09/24 06:00
I&O
04/08/24 04/09/24 04/10/24
06:59 06:59 06:59
Intake Total 750 / 750 2069
Balance 750 / 750 2069
[2024-04-09] MEDS: NSS (PRESERVATIVE FREE) 10 ML IV ×2 (08:14→20:31)
[2024-04-09] MEDS: PROTONIX IV 40 MG IV ×2 (08:14→20:32)
--- NOTE | 2024-04-09 10:06 | W.PN.GI.CBS2 ---
Addendum entered and electronically signed by Domenico Crandall MD 04/10/24 10:26:
after hp breath test resume ppi given recurrent ulcer bleed in dc summary
Original Note:
Today's Communication / Plan
-
regular diet, ppi, monitor hb, hp testing outpatient
Assessment / Plan
-
64 yo F pmh here with melena and hematemesis with drop in Hb, elevated BUN all found to have clean based (pigmented spot) duodenal ulclers in setting of meloxicam/prednisone.
Recommendations:
- PPI po bid x4 weeks then daily for 4 weeks
- After 8 weeks of PPI, hold PPI for 2 weeks and check HP breath test - I will leave script in chart
- HP stool test also ordered but may have false negative on PPI
- However suspect ulcer from NSAIDs and d/w pt and to avoid all NSAIDs moving forward
- Trend Hb if has another drop in Hb or active bleeding please call GI
- Regular diet
- GI will sign off please call with ?s
I reviewed with on phone above.
Subjective
Subjective
Date of Service: April 09, 2024
No BM overnight, no abd pain (leg pain) but did have a Hb 6.9 last night got 1 unit of blood and hb 10 (question if hb 6.9 spurious?)
Objective
Data Reviewed
Laboratory Data:
Laboratory Results
04/09/24 06:12
04/09/24 06:12
Laboratory Results
Total Bilirubin 0.7 mg/dl (0.2-1.3) 04/07/24 16:20
AST 22 U/L (14-36) 04/07/24 16:20
ALT 16 U/L (0-35) 04/07/24 16:20
Alkaline Phosphatase 65 U/L (38-126) 04/07/24 16:20
Vital Signs and I&O:
Vital Signs
Temp Pulse Resp BP Pulse Ox
97.8 F 84 17 130/70 99
04/09/24 07:15 04/09/24 06:00 04/09/24 06:00 04/09/24 06:00 04/09/24 06:00
I&O
04/08/24 04/09/24 04/10/24
06:59 06:59 06:59
Intake Total 750 / 750 2069
Balance 750 / 750 2069
Physical Exam
Physical Exam
HEENT: Anicteric
Cardiology: Normal Sinus Rhythm
Pulmonary: Clear
GI: Non Distended and Non Tender
[2024-04-09] MEDS: LIDOCAINE 4% PATCH 2 PATCH TOPICAL (13:34)
[2024-04-09] MEDS: TYLENOL 1000 MG PO ×2 (13:35→20:27)
--- NOTE | 2024-04-09 15:10 | PN.CDI ---
Addendum entered and electronically signed by Aiyana Barger MD 04/09/24 15:16:
Underweight
Original Note:
CDI
- -
CDI:
Physician Documentation Request
Admit Date: 04/07/24 18:44
Dear Doctor Denita,
Please review the following and provide your response in the progress notes.
Clinical Indicators:
Height: 5'6
Weight: 109 lbs
BMI: 17.7
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 This is a 8.5% BW loss over 2 months (significant)'
If possible, please provide an associated diagnosis related to the abnormal BMI, such as:
Underweight
Cachectic
Other (please specify)
Use of terms such as suspected, likely, concern for, or probable (associated with a specific diagnosis that is being evaluated, monitored, or treated as if it exists) are acceptable and can be coded in the inpatient setting, when documented at the
time of discharge.
Thank you,
Thong Elizabeth RN
CDI Specialist
Please use your independent medical judgment in providing your response.
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
[2024-04-09] MEDS: FLUSH (NSS) 1 FLUSH IV (21:49)
[2024-04-09] MEDS: ATIVAN 0.25 MG IV (21:49)
[2024-04-10] VITALS (10 sets, daily range): BP systolic 113–151; BP diastolic 53–83; BMI 16.9
--- NOTE | 2024-04-10 02:08 | PTCARENOTE ---
Pt had complaints of pain in right leg, Tylenol given. Pt remained in discomfort and and presenting as anxious. PRN Ativan given to help with anxiety and relax for leg. Reassessment Pt appears to be sleeping comfortable, respirations even unlabored,
vitals stable at this time. Bed alarm on, call flor within reach. Assessment care and vitals as charted.
[2024-04-10] MEDS: TYLENOL 1000 MG PO ×3 (03:29→20:14)
[2024-04-10 04:05] LABS: Hemoglobin 9.4 g/dL (12.0-16.0); Mean Corp Hgb Conc. 36.2 g/dL (33.0-37.0); Mean Corpuscular Volume 88.4 fL (81.0-99.0); Mean Platelet Volume 10.6 fL (7.4-10.4); Platelet Count 134 10^3/uL (130-400); Red Blood Cell Count 2.94 10^6/uL (4.20-5.40); Red Cell Dist. Width 13.8 % (11.5-14.5); White Blood Cell Count 6.9 10^3/uL (4.8-10.8)
--- NOTE | 2024-04-10 06:21 | W.PN.HOSP.TC ---
Today's Communication/Plan
-
Trial of Tylenol TID & PRN Flexeril
dc planning
Assessment / Plan
Assessment / Plan
Physical Exam
General: No Apparent Distress
HEENT: Normocephalic and Anicteric
Respiratory: Clear; No Wheezes, Rales or Rhonchi
Cardiac: S1/S2, Regular Rhythm and Tachycardia; No Murmur
GI: Soft, Non Tender and Non Distended
Musculoskeletal: No Edema
Skin: Warm
Neuro: AO to self and surroundings but short term memory impairment, followed commands.
Psych: Calm
# upper GI bleeding likely secondary to suspected nonsteroidal anti-inflammatory drug induced gastric irritation.
Acute blood loss anemia
- DC' d Meloxicam . Avoid NSAIDS
- Status post 5 units of PRBC. Repeat hemoglobin 10 then 9.5.
- s/p PPI gtt, change IV PPI BID
- s/p IVF
-EGD 04/07,Normal esophagus. Small hiatal hernia. Multiple gastric polyps.Normal stomach. Non-bleeding duodenal ulcers with a flat pigmented spot (Kaushal Class IIc). s/p EGD 04/09 clean based (pigmented spot) duodenal ulcers in setting of
meloxicam/prednisone.
- GI followed.
# Right sciatic pain
Will do Tylenol TID, PRN Flexeril
Recent L4/5 laminectomy and fusion at [facility] December 2023 for Lumbar disc disease with right-sided sciatica
S/p PO Prednisone taper
- DC Meloxicam
Dementia early onset
-Monitor for behavioral disturbances
-Ativan for severe anxiety
Known HX
Hypercholesterolemia
Anxiety
Migraines
Diverticulitis
Low Estrogen
Total time spent to see the patient, examine the patient, review data and lab results, discuss treatment plan with nursing staff around 55 minutes
Anticipated Discharge: Within 24 hours
Subjective/Interval History
-
Date of Service: April 10, 2024
Some restlessness over night when lowering sedation
No fevers
Still dark soft stools
Objective Data
-
Labs:
Laboratory Results
04/10/24
03:34
WBC 6.9
Hgb 9.4 L
Hct 26.0 L
Plt Count 134
Vital Signs:
Vital Signs
Temp Pulse Resp BP Pulse Ox
97.6 F 76 17 118/60 98
04/10/24 03:00 04/10/24 04:00 04/10/24 04:00 04/10/24 04:00 04/10/24 02:00
I&O
04/08/24 04/09/24 04/10/24
06:59 06:59 06:59
Intake Total 750 / 750 2069 340 / 340
Balance 750 / 750 2069 340 / 340
[2024-04-10] MEDS: LIDOCAINE 4% PATCH 2 PATCH TOPICAL (07:59)
[2024-04-10] MEDS: PROTONIX IV 40 MG IV ×2 (08:00→20:13)
[2024-04-10] MEDS: NSS (PRESERVATIVE FREE) 10 ML IV ×2 (08:00→20:13)
[2024-04-10] MEDS: TYLENOL PO (16:20)
--- NOTE | 2024-04-10 16:20 | PTCARENOTE ---
pt downgraded to med surg. transferring to rrom 417. report given to Marina.
[2024-04-10] MEDS: FLEXERIL 5 MG PO (17:10)
[2024-04-10] MEDS: ATIVAN 0.25 MG IV (22:49)
[2024-04-11] MEDS: FLEXERIL 5 MG PO (00:50)
[2024-04-11] MEDS: ROXICODONE 5 MG PO (00:55)
--- NOTE | 2024-04-11 02:45 | DOWNTIME ---
There was a [employer] Operator Downtime on 04/11/2024 from 0100 to 04/11/2023 at 0235 . Downtime documentation of patient's care, including medication administrations, has been reconciled in the electronic record per guidelines. Refer to the
patient's paper chart under the miscellaneous tab to see printed paper medication records and downtime forms.
[2024-04-11 07:30] VITALS: BP 103/73
[2024-04-11] MEDS: NSS (PRESERVATIVE FREE) 10 ML IV (07:41)
[2024-04-11] MEDS: ULTRAM 50 MG PO (07:41)
[2024-04-11] MEDS: PROTONIX IV 40 MG IV (07:41)
[2024-04-11] MEDS: TYLENOL 1000 MG PO (07:41)
[2024-04-11] MEDS: LIDOCAINE 4% PATCH 2 PATCH TOPICAL (07:42)
[2024-04-11] MEDS: FEOSOL 325 MG PO (07:42)
--- NOTE | 2024-04-11 09:15 | W.PN.HOSP.TC ---
Addendum entered and electronically signed by Aiyana Barger MD 04/11/24 16:47:
Addendum
Patient received tramadol and pain became better controlled. Discussed with patient. Seems the bedding on the hospital is exacerbating her pain. She asked if she could be discharged home. I called the and discussed with him, consulted
binder caser. Patient will be discharged home with home health services and prescription for tramadol. She was instructed to avoid nonsteroidal anti-inflammatory drugs.
Total discharge time spent to see the patient on the floor, examine the patient, review data and lab results, discuss discharge plan with patient, , binder caser and nursing staff around 65 minutes
Original Note:
Today's Communication/Plan
-
Trial of Tramadol
Will need PT/OT
Significant Sciatica on right side
Assessment / Plan
Assessment / Plan
Physical Exam
General: No Apparent Distress
HEENT: Normocephalic and Anicteric
Respiratory: Clear; No Wheezes, Rales or Rhonchi
Cardiac: S1/S2, Regular Rhythm and Tachycardia; No Murmur
GI: Soft, Non Tender and Non Distended
Musculoskeletal: No Edema
Skin: Warm
Neuro: AO to self and surroundings but short term memory impairment, followed commands.
Psych: Calm
# upper GI bleeding likely secondary to suspected nonsteroidal anti-inflammatory drug induced gastric irritation.
Acute blood loss anemia
- DC' d Meloxicam . Avoid NSAIDS
- Status post 5 units of PRBC. Repeat HGB stable, started on oral Iron.
- s/p PPI gtt, change IV PPI BID
- s/p IVF
-EGD 04/07,Normal esophagus. Small hiatal hernia. Multiple gastric polyps.Normal stomach. Non-bleeding duodenal ulcers with a flat pigmented spot (Kaushal Class IIc). s/p EGD 04/09 clean based (pigmented spot) duodenal ulcers in setting of
meloxicam/prednisone.
- GI followed.
# Right sciatica pain
Still in pain despite Tylenol TID, PRN Flexeril
Will do Tramadol, pt agreed to use it
Can not do NSAIDs due to GI Bleeding
Recent L4/5 laminectomy and fusion at [facility] December 2023 for Lumbar disc disease with right-sided sciatica
S/p PO Prednisone taper
- DC Meloxicam
Dementia early onset
-Monitor for behavioral disturbances
-Ativan for severe anxiety
Known HX
Hypercholesterolemia
Anxiety
Migraines
Diverticulitis
Low Estrogen
Total time spent to see the patient, examine the patient, review data and lab results, discuss treatment plan with nursing staff around 55 minutes
Anticipated Discharge: Within 24 hours
Subjective/Interval History
-
Date of Service: April 11, 2024
No chest pain
No sob
Still right sciatic pain
Objective Data
-
Vital Signs:
Vital Signs
Temp Pulse Resp BP Pulse Ox
98.8 F 99 20 103/73 99
04/11/24 07:30 04/11/24 07:30 04/11/24 07:30 04/11/24 07:30 04/11/24 07:30
I&O
04/10/24 04/11/24 04/12/24
06:59 06:59 06:59
Intake Total 340 / 340 880 / 880
Balance 340 / 340 880 / 880
[2024-04-11 09:34] VITALS: BP 130/70; PULSE 95; O2SAT 100
[2024-04-11 09:38] VITALS: BP 130/70; O2SAT 100
--- NOTE | 2024-04-11 12:28 | CM ---
Addendum entered by Emily Griffin 04/11/24 15:07:
Per hospitalist, pt is stable for d/c today.
Spoke w/ pt's spouse who is agreeable to d/c. CM discussed w/ pt if there is any other services needed at home as it is noted pt is forgetful at times. Per spouse, he is capable of caring for pt, he did discuss w/ his neighbor who was prev
caregiver, who is able to assist. CM discussed the option of aides/caregivers a few days a week, spouse was unsure at this time but is agreeable to receive information. CM will provide brochures for daughterly companions.
[facility] accepted for services. CM informed [facility] liaison of pt d/c today
IMM reviewed, copy on chart. Per spouse he will pick pt up around 4/4:30 pm
Nurse updated
Original Note:
Chart reviewed for d/c planning. Therapy recommending home PT at d/c
Pt is current w/ [facility]
Plan: Home w/ [facility]
[2024-04-11] MEDS: ATIVAN 0.25 MG IV (14:15)
[2024-04-11] MEDS: MIRALAX 17 GRAMS PO (14:55)
--- NOTE | 2024-04-11 15:13 | VNURNOTE ---
Chart reviewed. Patient forgetful. [facility] liaison called patient's spouse Kulwinder. No answer, left message explaining frequency, services, pet policy, and liaison contact number if questions. [facility] referral placed in [facility].
[2024-04-11 15:53] VITALS: BP 137/79
--- NOTE | 2024-04-11 16:32 | W.DCSUMMARY ---
Discharge Summary
Discharge Data
Date of Admission: 04/07/24
Date of Discharge: 04/11/24
-
Pending Results: No
Hospital Course
64 years old female with history of gastric ulcer in 2019 and gastrointestinal bleeding presented with black stool, lightheadedness along with multiple episodes of dark vomit over the past 2 days. She had recent back surgery and was taking
combination of pain medication, i.e. meloxicam and prednisone. Hemoglobin was around 8.9 and later dropped to 6.8. Patient was evaluated by gastroenterology service. She had upper endoscopy and was found to have duodenal ulcers. She was treated
with 5 units. hemoglobin stabilized between 9 and 10. She was started on oral iron therapy. Patient complained of right sciatica pain. She was given Tylenol but did not help. She was given low-dose Flexeril and tramadol that helped more to
control her pain. Patient was evaluated by home health care case manager and physical therapy. Patient remained hemodynamically stable and was discharged home in a stable condition with home health services.
Discharge Plan
-
Patient Disposition: Home with Home Care
Discharge Diagnosis/Procedures: Gastrointestinal bleeding in the setting of nonsteroidal anti-inflammatory drugs that resulted into duodenal ulcers
You are seen by gastroenterology, you had upper endoscopy. You are given blood transfusions. Instruction how to use the Protonix down below, follow-up with GI doctor in the office. Avoid all nonsteroidal anti-inflammatory drugs for now.
Right sciatica pain, use Tylenol for mild to moderate pain. Use tramadol for severe pain. Tramadol (opioid medicine) can cause constipation, drowsiness. You can take even half a pill ( 25 mg) as needed.
Flexeril can cause dizziness.
Diet: As tolerated
Others Tests: - protonix 40 mg twice a day for 4 weeks then daily for 4 weeks
- After 8 weeks of protonix, hold protonix for 2 weeks and check HP breath test - script will be given to patient on discharge
- After HP breath test RESUME protonix 40 daily given recurrent ulcer bleed
- NO NSAIDS
Referrals:
Domenico Crandall MD [Active] - in one month
UNKNOWN - PT DOES,NOT KNOW [Family Provider] -
Prescriptions:
New
polyethylene glycol 3350 17 gram Powder In Packet
17 g PO DAILY Qty: 30 0RF
ferrous sulfate [FeroSul] 325 mg (65 mg iron) Tablet
325 mg PO DAILY Qty: 30 0RF
tramadol 50 mg tablet
50 mg PO BID PRN (Reason: severe pain) Qty: 20 0RF
Continued
donepezil 5 mg Tablet
5 mg PO HS
tizanidine 4 mg Tablet
4 mg PO HS
sertraline 100 mg Tablet
100 mg PO DAILY
valacyclovir 500 mg Tablet
500 mg PO DAILY
acetaminophen [Tylenol Extra Strength] 500 mg Tablet
1,000 mg PO Q6HPRN PRN (Reason: mild pain)
lidocaine 5 % Adhesive Patch,Medicated
1 patch TOPICAL DAILYPRN PRN (Reason: mild pain)
omega-3 fatty acids-fish oil 684-1,200 mg Capsule,Delayed Release(Dr/Ec)
1 cap PO DAILY
cholecalciferol (vitamin D3) [Vitamin D3] 50 mcg (2,000 unit) Tablet
50 mcg PO DAILY
Discontinued
polyethylene glycol 3350 [Miralax] 17 gram powder in packet
4.25 g PO DAILY
meloxicam 15 mg tablet
15 mg PO HS
Discharge Orders:
Discharge Patient (As Directed); Ordered 04/11/24
Ordered By: Aiyana Barger
Discharge Date and Time
Print Language: TELUGU
== END 2024-04-11 16:58 | disposition home health service (06) | DRG 378 ==
LOC: 4 WEST ACU 18:44
PROVIDERS: Hospitalist; Nurse Practitioner Family; ADMITTING PHYSICIAN Internal Medicine; ATTENDING PHYSICIAN Internal Medicine; CONSULT PHYSICIAN Internal Medicine Gastroenterology; EMERGENCY PHYSICIAN Emergency Medicine
PROC: 30233N1 Transfusion of Nonautologous Red Blood Cells into Peripheral Vein, Percutaneous Approach (ICD-10-PCS; 2024-04-07)
PROC: 0DJ08ZZ Inspection of Upper Intestinal Tract, Via Natural or Artificial Opening Endoscopic (ICD-10-PCS; 2024-04-08)
DX: K26.4 Chronic or unspecified duodenal ulcer with hemorrhage (principal); D62 Acute posthemorrhagic anemia; Z68.1 Body mass index [BMI] 19.9 or less, adult; F03.94 Unspecified dementia, unspecified severity, with anxiety; T39.395A Adverse effect of other nonsteroidal anti-inflammatory drugs [NSAID], initial encounter; K44.9 Diaphragmatic hernia without obstruction or gangrene; K31.7 Polyp of stomach and duodenum; E78.00 Pure hypercholesterolemia, unspecified; F41.9 Anxiety disorder, unspecified; I10 Essential (primary) hypertension; G43.909 Migraine, unspecified, not intractable, without status migrainosus; M51.9 Unspecified thoracic, thoracolumbar and lumbosacral intervertebral disc disorder; M54.31 Sciatica, right side; K57.90 Diverticulosis of intestine, part unspecified, without perforation or abscess without bleeding; Z90.710 Acquired absence of both cervix and uterus; Z90.721 Acquired absence of ovaries, unilateral; Z87.891 Personal history of nicotine dependence; Z88.2 Allergy status to sulfonamides; E11.9 Type 2 diabetes mellitus without complications
CPT/HCPCS: 80048; 80053; 82728; 83540; 83550; 85014; 85018; 85025; 85027; 86850; 86900; 86901; 86920; 96365; 96366; 97162; 97166; 99284; P9016

== ENCOUNTER → 2024-08-28 14:46 | Outpatient (REF) | payer MEDICARE, OTHER, SELFPAY | LOC: WDC 14:46 | PROVIDERS: ATTENDING PHYSICIAN Family Medicine | DX: Z12.31 Encounter for screening mammogram for malignant neoplasm of breast (principal) | CPT/HCPCS: 77063; 77067 ==

== ENCOUNTER 2024-08-30 18:16 | Emergency (ER) | payer MEDICARE, OTHER, SELFPAY ==
[2024-08-30 18:34] VITALS: BP 192/91
[2024-08-30 19:18] LABS: Hematocrit 39.1 % (37.0-47.0); Hemoglobin 13.4 g/dL (12.0-16.0); Mean Corp Hgb Conc. 34.3 g/dL (33.0-37.0); Mean Corpuscular Volume 92.0 fL (81.0-99.0); Nucleated Red Blood Cells % 0 %; Platelet Count 282 10^3/uL (130-400); Red Cell Dist. Width 13.1 % (11.5-14.5)
[2024-08-30 19:31] LABS: ALT (SGPT) 41 U/L (0-35); AST (SGOT) 38 U/L (14-36); Albumin 4.9 g/dl (3.5-5.0); Alkaline Phosphatase 82 U/L (38-126); Blood Urea Nitrogen 12 mg/dl (7-17); Calcium 9.7 mg/dl (8.4-10.2); Carbon Dioxide 26 mmol/L (22-30); Chloride 107 mmol/L (98-107); Glucose 79 mg/dl (70-99); Lipase 229 U/L (23-300); Potassium 4.0 mmol/L (3.5-5.1); Sodium 139 mmol/L (135-145); Total Protein 7.9 g/dl (6.3-8.2); eGFR > 60.00
[2024-08-30 19:49] LABS: Urine Character Clear (Clear)
[2024-08-30 20:05] LABS: Urine Red Blood Cell 0-2 /HPF (0-2)
[2024-08-30 20:44] VITALS: BMI 18.4
[2024-08-30 20:52] VITALS: BP 181/79
[2024-08-30 21:00] VITALS: BP 180/75
[2024-08-30 22:03] VITALS: BP 171/81
[2024-08-30 22:30] LABS: Acetaminophen < 10 ug/ml (10-30)
--- NOTE | 2024-08-30 23:02 | ED.GENMED ---
History of Present Illness
General
Chief Complaint: Abdominal Pain
Source: patient and family (Family friend at bedside)
Exam Limitations: dementia
Time Seen by Provider: 08/30/24 20:42
Nursing documentation reviewed up to this point in time: agreed with
History of Present Illness
History of Present Illness:
The patient is a 64-year-old female who presents to the emergency department with abdominal pain. Patient history taking somewhat limited given history of dementia although she does have a family friend who was at bedside and assisting.
Patient reports noticing lower abdominal pain near site of prior surgical incision over the past few days. She states she first noticed the symptoms on Tuesday. Patient was at physical therapy today when she mentioned this to her physical therapist
who thought he may have felt a lump under the skin. It was recommended that she come to the emergency department for further evaluation.
Patient denies any fever, chills, nausea, or vomiting. No urinary symptoms. No changes in bowel habits.
She states discomfort most notable when she presses on the affected area.
Of note- patient reports recent spinal fusion with anterior approach in April. Surgery was uncomplicated and she�s been healing well since.
Past History
Past History
ED Past Medical History: Hypercholesterolemia, Psychiatric (Anxiety) and Other (Ulcers, Migraines, Diverticulitis, Low Estrogen; lumbar disc disease with right-sided sciatica); Negative Asthma, HTN or NIDDM
ED Past Surgical History: Gynecological (Hysterectomy with left Oophorectomy)
Social History
Tobacco: Former smoker
Alcohol: None
Drug: None
Personal:
Living: with family
Employment: Retired
Family History
Family History: Other (nc)
Review of Systems
Review of Systems
Allergies reviewed?: Yes
All Other Systems: ROS reviewed and negative except as documented in HPI and ROS
Phy Exam
Physical Exam
Physical Exam:
Vitals: Hypertensive, otherwise vital signs stable. Afebrile
General: Patient is well appearing, no acute distress. Nontoxic appearing.
Skin: Warm and dry, no rashes or lesions. Well healing surgical scar on central lower abdomen. No wound dehiscence, surrounding erythema, drainage. No red streaking. No fluctuance of induration in surrounding skin.
Head: Normocephalic, atraumatic
Eyes: Sclera nonicteric.
Throat: Protecting airway
Neck: Normal ROM, no cervical spine tenderness, no meningismus
Cardiac: Regular rate and rhythm, no murmurs.
Pulm: Normal respiratory effort, no wheezes, rales, rhonchi heard on exam
Abdomen: Abdomen soft and nontender. Well healing surgical scar as above. No palpable incisional hernia.
Extremities: No evidence of cyanosis or edema
Back: Well healing surgical scar on lower back.
Neuro: AAOx3. Grossly intact.
Psychiatric: Normal affect.
Course
Orders/Labs/Results
Orders:
Orders
08/30/24 18:43
Electrocardiogram (*1) Urgent
Reason for Study: Abdominal Pain
08/30/24 18:44
EKG- Treatment ONCE
08/30/24 19:03
Acetaminophen Urgent
Comment: ADD ON
Complete Blood Count/With Diff Urgent
Comprehensive Metabolic Panel Urgent
Lipase Urgent
Urinalysis Reflex To Culture Urgent
Date Specimen was Collected: 08/30/24
Time Specimen was Collected: 18:44
Urine Microscopic Reflex Cult Urgent
Urine Culture Urgent
FLORY Source: U
Specimen Description:
Date Specimen was Collected: 08/30/24
Time Specimen was Collected: 18:44
08/30/24 21:56
Add On- LAB Urgent
Tests Added?: tylenol level
CT Abd/pelvis W Iv Cont Urgent
Comment:
Reason For Exam: Incisional pain lower abdomen
Abnormal Lab Results
08/30/24
19:03
MCH 31.5 H pg
(27.0-31.0)
Creatinine 0.5 L mg/dL
(0.6-1.0)
AST 38 H U/L
(14-36)
ALT 41 H U/L
(0-35)
Ur Occult Blood Reflex 1+ A
(Negative)
Leukocyte Esterase Rfl 1+ A
(Negative)
Urine WBC (Reflex) 11-15 A /HPF
(0-5)
Urine Bacteria (Reflex) Moderate A
(Negative)
Acetaminophen < 10 L ug/ml
(10-30)
08/30/24 19:03
08/30/24 19:03
Vital Signs
Initial and Last Documented VS:
Initial Vital Signs
Temp Pulse Resp BP Pulse Ox
98.2 F 83 18 192/91 100
08/30/24 18:34 08/30/24 18:34 08/30/24 18:34 08/30/24 18:34 08/30/24 18:34
Last Documented Vital Signs
Temp Pulse Resp BP Pulse Ox
97.8 F 72 18 164/73 100
08/30/24 20:52 08/31/24 00:25 08/31/24 00:25 08/31/24 00:00 08/31/24 00:00
MDM/Problems Addressed
Differential Diagnosis Includes:
Not limited to: muscle strain, scar tissue, incisional hernia, abscess, cellulitis, etc
MDM/Problems Addressed:
64-year-old female with discomfort under well healed abdominal surgical scar. She had an uncomplicated spinal fusion with anterior approach in April now with discomfort under incision for the past three days. No associated infectious symptoms.
Vitals as above. Physical exam as above.
Ultimately � relatively unremarkable exam. Very low suspicion for acute infectious process. No evidence of incisional hernia or surrounding cellulitis. No palpable area of fluctuance or induration. Discussed with patient regarding close monitoring
at home vs CT scan today � she would prefer CT scan. Will reassess after.
Update: Labs initiated in triage. No clinically significant abnormalities. No leukocytosis or abnormalities on chemistry other than mild transaminitis which was discussed with patient and family.. CT scan without acute abnormalities. No evidence of
abscess or hernia. Urinalysis does show bacteria and a few WBCs however, patient has no complaints of dysuria or other UTI symptoms � this may reflect contamination. Will hold on antibiotics pending culture.
Ultimately � work up in ED negative. Feel stable for discharge home with surgical follow up as scheduled. Strict return precautions discussed. Patient and patient�s family comfortable with plan.
Chronic conditions affecting care:
Recent spinal fusion with anterior approach, dementia
Acute Exacerbation and/or Progression of Chronic Illness:
N/A
*Radiology
Radiology exam reviewed: radiology read reviewed
*Pulse Oximetry
SaO2: 100
Oxygen Mode of Delivery: Room air
Patient hypoxic: no
*EKG
Interpreted by ED Provider?: Yes
EKG Intrepretation Date: 08/30/24
Interpretation: abnormal
Heart Rate: 81
Rate: normal
Rhythm: sinus
*Binding Cutter Interpretation
Rate: Binding Cutter- N/A
*Critical Care Note
Total Time (30-74mins, 75-104mins- exclusive of procedures): Not Applicable
ED Attending Note
-
Portions of this chart may have been created with voice recognition software.� Occasional wrong word or��sound alike� substitutions may have occurred due to the inherent limitations of voice recognition software.
Discharge Plan
Departure
Patient Disposition: Home (Routine Discharge)
Date of Disposition: 08/31/24
Time of Disposition: 00:05
Patient with high blood pressure during this ER visit?: Yes
Condition: Good
Discharge Problem:
Abdominal pain
Instructions: Abdominal Pain, BLOOD PRESSURE
Prescriptions:
No Action
donepezil 5 mg Tablet
5 mg PO HS
tizanidine 4 mg Tablet
4 mg PO BID
sertraline 100 mg Tablet
100 mg PO DAILY
valacyclovir 500 mg Tablet
500 mg PO DAILY
acetaminophen [Tylenol Extra Strength] 500 mg Tablet
1,000 mg PO Q8HPRN PRN (Reason: Cytokine Release Syndrome)
omega-3 fatty acids-fish oil 684-1,200 mg Capsule,Delayed Release(Dr/Ec)
1 cap PO DAILY
cholecalciferol (vitamin D3) [Vitamin D3] 50 mcg (2,000 unit) Tablet
50 mcg PO DAILY
sennosides [senna] 8.6 mg Tablet
8.6 mg PO HS
lansoprazole [Prevacid] 30 mg Capsule,Delayed Release(Dr/Ec)
30 mg PO DAILY
Referrals:
Abi Monge MD [Family Provider] - Follow up in 5-7 days
Activity Restrictions/Additional Instructions:
RETURN TO THE EMERGENCY DEPARTMENT ANY FEVER, CHILLS, INTRACTABLE NAUSEA/VOMITING, PERSISTENT/WORSENING ABDOMINAL PAIN, SIGNS OF A URINARY TRACT INFECTION, SIGNS OF INFECTION SURROUNDING INCISION, OR ANY OTHER CONCERNS
- As discussed�your lab work and CT scan showed no acute findings. Your liver function was mildly elevated today. Please have this repeated with your primary care to ensure trending down.
- Please follow-up with your surgeon for further evaluation/management.
Monitor your symptoms closely and return to the emergency department with any acute worsening/new symptoms or any signs of infection
Interventions
Interventions:
*Risk Screen - Suicide Last Done: 08/30/24 18:34
*General Assessment Last Done: 08/30/24 18:34
*Neglect/Abuse Screening Last Done: 08/30/24 20:44
*ED- Fall Risk Assessment Last Done: 08/30/24 20:44
*ED COVID-19 Vaccine History Last Done: 08/30/24 18:34
*Nursing Disposition Last Done: 08/31/24 00:25
KZ-[id number]-Bcohuaqwae Assessment Last Done: 08/30/24 20:44
Discharge Date and Time
Discharge Date/Time: 08/31/24 00:25
Print Language: SLOVENIAN
[2024-08-30 23:42] VITALS: BP 156/81
[2024-08-31] VITALS: BP 164/73
== END 2024-08-31 00:25 | disposition home or self-care (01) ==
LOC: EMR 18:16
PROVIDERS: Emergency Medicine; EMERGENCY PHYSICIAN Emergency Medicine; FAMILY PHYSICIAN Family Medicine
DX: R10.9 Unspecified abdominal pain (principal); F03.90 Unspecified dementia, unspecified severity, without behavioral disturbance, psychotic disturbance, mood disturbance, and anxiety; E78.00 Pure hypercholesterolemia, unspecified; E11.9 Type 2 diabetes mellitus without complications; Z87.891 Personal history of nicotine dependence; Z90.710 Acquired absence of both cervix and uterus; Z90.721 Acquired absence of ovaries, unilateral; Z98.1 Arthrodesis status
CPT/HCPCS: 99284; 74177; 80053; 80143; 81003; 81015; 83690; 85025; 87077; 87086; 87186; 93005; Q9967

== ENCOUNTER → 2024-11-06 10:47 | Outpatient (REF) | payer MEDICARE, OTHER, SELFPAY | LOC: HWRAD 10:47 | PROVIDERS: ATTENDING PHYSICIAN Family Medicine | DX: Z78.0 Asymptomatic menopausal state (principal) | CPT/HCPCS: 77080 ==